=== PATIENT | female | born 1950 | race Caucasian/White ===

== ENCOUNTER → 2017-05-17 | Outpatient (CLI) | payer MEDICARE, BC ==
[~2017-05-17] MED LIST: ACETAMINOPHEN325 MG PO; ACID CONTROL150 M1 PO; ASTELIN137 MCG INH; COUMADIN PO; CYMBALTA30 MG PO; FISH OIL 1,2001 EAC1 PO; FISH OIL 1,2001 EAC2 PO; GLUCOSAMINE-CH1 EAC3 PO; HYDROCODON-ACE1 EAC5 PO; HYDROCODONE/APA1 T16 PO; HYDROXYZINE PAM25 MG PO; LIPITOR PO; LOTREL 10/40 MG1 CAP PO; MOBIC15 MG PO; MULTI VITAMIN1 EACH PO; MULTI-VITAMIN W1 TA1 PO; NASONEX17 GM; OXYCODON HCL-AP1 TA2 PO; PROBIOTIC1 EAC1 PO; TIZANIDINE HCL4 M1 PO; VISTARIL PO; VITAL-D RX TABL1 TAB PO; VITAMIN D5000 UNIT PO; WARFARIN SODIUM2 M1 PO; ZANAFLEX4 M1 PO; ZINC SULFATE PO; ZINC50 M1 PO; ZYRTEC PO
--- NOTE | ~2017-05-17 | US85 ---
[facility]. [facility] A Service of [facility] & [facility] RADIOLOGY TEXT RESULTS PATIENT: SREEKANTH RAMIREZ LOCATION: CNIV : 50 UNIT #: [id number] AGE: [address]: JUAN MONTEIRO MD SEX: F ORDER DR: [id number] [facility] [address] [place], [place] [address] [id number] O MR#: [id number] Acc #: [id number] NAME: SREEKANTH RAMIREZ : 1950 SEX: F STUDY DATE/TIME: 05/17/2017 12:28 UNIT: CNIV ROOM: STUDY DESCRIPTION: [facility] Attending Physician: Juan Monteiro M.D. Referring Physician: Juan Monteiro M.D. Ordering Physician: Juan Monteiro M.D. Primary Care Physician: Don Mchugh M.D. MEDICAL IMAGING REPORT This report is preliminary unless electronic signature is present EXAM Right lower extremity venous Doppler, 05/17/2017 REASON FOR EXAM Lower extremity edema, cellulitis. FINDINGS The right common femoral vein, femoral vein, popliteal vein, tibial veins demonstrate patency and compressibility. There is phasic and spontaneous flow with respiration and augmentation. Proximal and distal greater saphenous vein is patent and compressible. IMPRESSION No evidence of right lower extremity deep vein thrombosis. Dictated by... Alison Diez M.D. THIS IS AN ELECTRONICALLY VERIFIED REPORT Alison Diez M.D. at 05/23/2017 5:09 PM SIGRIDN/wilton TD: 05/18/2017 00:02 JOB #: [id number] MEDICAL IMAGING REPORT Page 1 of 1 COPY
== END | disposition home or self-care (01) ==
LOC: CNIV 12:00
DX: R60.0 Localized edema (principal); L03.90 Cellulitis, unspecified
CPT/HCPCS: 93971